=== PATIENT | male | born 1985 ===

== ENCOUNTER 2024-03-22 09:34 | Emergency (ER) | payer OTHER ==
[2024-03-22] MEDS ORDERED: Sodium Chloride 0.9% 10 ML Syringe FLUSH PRN (09:42)
[2024-03-22] MEDS ORDERED: Sodium Chloride 0.9% 2.5 ML Syringe FLUSH PRN (09:42)
[2024-03-22 09:59] LABS: BASOPHILS ABSOLUTE AUTO 0.06 K/uL (0.00-0.20); BASOPHILS PERCENT AUTO 0.6 % (0.0-1.0); EOSINOPHILS ABSOLUTE AUTO 0.25 K/uL (0.00-0.45); EOSINOPHILS PERCENT AUTO 2.7 % (0.0-6.0); HEMATOCRIT 44.2 % (42.0-52.0); HEMOGLOBIN 15.5 g/dL (14.0-18.0); IMMATURE GRAN ABSOLUTE AUTO 0.03 K/uL (0.00-0.05); IMMATURE GRAN PERCENT AUTO 0.3 % (0.0-0.4); LYMPHOCYTES ABSOLUTE AUTO 2.35 K/uL (1.00-4.80); LYMPHOCYTES PERCENT AUTO 25.2 % (24.0-44.0); MEAN CORPUSCULAR HEMOGLOBIN 30.5 pg (28.0-32.0); MEAN CORPUSCULAR HGB CONC 35.1 g/dL (32.0-36.0); MEAN PLATELET VOLUME 10.2 fL (9.4-12.4); MONOCYTES ABSOLUTE AUTO 0.82 K/uL (0.00-0.80); MONOCYTES PERCENT AUTO 8.8 % (0.0-8.0); NEUTROPHILS ABSOLUTE AUTO 5.81 K/uL (1.80-7.70); NEUTROPHILS PERCENT AUTO 62.4 % (41.0-71.0); PLATELET COUNT,PLT 271 K/uL (150-400); RED BLOOD CELL COUNT 5.08 M/uL (4.52-5.90); WHITE BLOOD CELL COUNT,WBC 9.32 K/uL (3.9-11.3)
[2024-03-22] MEDS: Ondansetron 4 MG/2 ML SDV IVPUSH ONE (10:14)
[2024-03-22] MEDS: Ketorolac 30 MG/ML SDV IVPUSH ONE (10:14)
[2024-03-22 10:45] LABS: A/G RATIO 1.2 (0.9-1.6); ALBUMIN 3.8 g/dL (3.4-5.0); BILIRUBIN TOTAL 0.6 mg/dL (0.2-1.0); CALCIUM 9.2 mg/dL (8.5-10.1); CARBON DIOXIDE,CO2 28.4 mmol/L (21.0-32.0); CREATININE 1.2 mg/dL (0.8-1.3); EST CRCL DRUG DOSING (CG) 96.09 mL/min
[2024-03-22 10:56] LABS: LACTIC ACID 0.7 mmol/L (0.4-2.0)
[2024-03-22 11:31] LABS: APPEARANCE,URINE SLT CLOUDY; BILIRUBIN,URINE NEGATIVE (NEGATIVE); COLOR,URINE YELLOW; GLUCOSE,URINE NEGATIVE (NEGATIVE); KETONES,URINE NEGATIVE (NEGATIVE); LEUKOCYTE ESTERASE,URINE NEGATIVE (NEGATIVE); NITRITE,URINE NEGATIVE (NEGATIVE); OCCULT BLOOD,URINE LARGE (NEGATIVE); PROTEIN,URINE TRACE mg/dL (NEGATIVE); UROBILINOGEN,URINE 0.2 EU/dL (<2.0)
[2024-03-22 11:38] LABS: BACTERIA,URINE FEW (NEGATIVE); EPITHELIAL CELLS,URINE FEW (NONE-FEW); RBC,URINE 50-60 (0-2/HPF); WBC,URINE 0-4 (0-5/HPF)
[2024-03-22 11:39] LABS: MUCUS,URINE LIGHT (NONE-MOD)
[2024-03-22] MEDS: Iopamidol 755 MG/ML 500 ML Multipack Bottle IVPUSH STA (11:43)
== END 2024-03-22 11:58 | disposition home or self-care (01) ==
LOC: MW.ED 09:34
DX: N20.0 Calculus of kidney (principal); F17.210 Nicotine dependence, cigarettes, uncomplicated; Z75.8 Other problems related to medical facilities and other health care
CPT/HCPCS: 36415; 74177; 80053; 81001; 83605; 83690; 85025; 96374; 96375; 99284; J1885; J2405; Q9967

== ENCOUNTER 2024-09-05 10:52 | Emergency (ER) | payer OTHER ==
[2024-09-05] MEDS: Proparacaine 0.5% Ophth Soln 15 ML Bottle EYERT ONE (11:27)
[2024-09-05] MEDS: Fluorescein 1 MG Ophth Strip EYERT ONE (11:28)
[2024-09-05] MEDS: Erythromycin Base 0.5% Ophth Oint 1 GM Tube EYERT ONE (12:02)
[2024-09-05] MEDS: Cetirizine 10 MG Tab PO ONE (12:03)
[2024-09-05] MEDS: Polymyxin B/Trimethoprim 10 ML Bottle EYERT ONE (12:11)
== END 2024-09-05 12:18 | disposition home or self-care (01) ==
LOC: MW.ED 10:52
DX: H10.9 Unspecified conjunctivitis (principal); Z75.3 Unavailability and inaccessibility of health-care facilities
CPT/HCPCS: 99283; A9270; J3490